=== PATIENT | male | born 1995 | race African-American/Black ===

== ENCOUNTER 2020-11-10 03:51 | Inpatient (IN) | payer OTHER, SELFPAY ==
[2020-11-10] VITALS (23 sets, daily range): BP systolic 108–153; BP diastolic 59–82; PULSE 59–94; RESP 12–22; TEMP 36.2–36.9; O2SAT 88–96; BMI 19.1
--- NOTE | ~2020-11-10 | XR_ITS ---
EXAMINATION: XR chest 1V portable EXAM DATE: 11/10/2020 04:29 INDICATION: Cough, asthma. TECHNIQUE: Portable AP frontal chest x-ray was obtained. Comparison is made to prior examination from 06/10/2019. FINDINGS: Mild hyperinflation. The lungs are clear. There are no pleural effusions. Cardiac silhoue tte is prominent but magnified on this AP technique. There is no pneumothorax suspected. The bones and soft tissues are unremarkable. IMPRESSION: Mild hyperinflation Reviewed, dictated and finalized at location A. S REPRESENTATIVE UNIFORMS IMPRESSION: Mild hyperinflation
[2020-11-10] MEDS: ALBUTEROL SULFATE NEB 2.5 MG/0.5 ML INH 10 MG INHALATION (04:12)
[2020-11-10] MEDS: IPRATROPIUM BR 0.02% INH SOLN 0.5 MG/2.5 ML VIAL 1 MG INHALATION (04:12)
[2020-11-10] MEDS: methylPREDNISolone SOD SUCC 125 MG VIAL IV PUSH (04:21)
[2020-11-10] MEDS: MAGNESIUM SULF 2 GM/WATER 50ML 2 GM/50 ML BAG IVPB (04:23)
[2020-11-10 04:31] LABS: Basophils Percent Auto 0.7 % (0.2-1.2); Eosinophils Absolute Auto 0.2 K/mm3 (0-0.3); Eosinophils Percent Auto 3.2 % (0-4.4); Hematocrit 44.5 % (42.0-52.0); Hemoglobin 14.9 g/dL (14.0-18.0); Immature Granulocyte Absolute 0.01 K/mm3 (0.00-0.031); Immature Granulocyte Percent A 0.2 % (0-0.5); Lymphocytes Absolute Auto 0.98 K/mm3 (0.9-3.2); Lymphocytes Percent Auto 17.5 % (18.3-44.2); Mean Corpuscular HGB Conc 33.5 g/dl (32-36); Mean Corpuscular Volume 92.7 fl (80-100); Mean Platelet Volume 10.3 fl (7.4-10.4); Monocytes Absolute Auto 0.4 K/mm3 (0.1-0.6); Neutrophils Percent Auto 71.4 % (45.5-73.1); Platelet Count Result 217 k/mm3 (150-375); Red Cell Distribution Width 13.9 % (11.5-14.5); White Blood Count 5.6 K/mm3 (4.5-10.0)
[2020-11-10 04:47] LABS: Anion Gap 7 mmol/L (8-16); Blood Urea Nitrogen 17 mg/dL (9-20); Calcium 8.8 mg/dL (8.4-10.2); Carbon Dioxide 28 mmol/L (22-30); Chloride 105 mmol/L (98-107); Estimated CRCL calculation 86 ml/min; Estimated Glomerular Filt Rate > 60; Glucose 108 mg/dL (75-110); Potassium 3.8 mmol/L (3.4-5.0); Sodium 140 mmol/L (137-145)
--- NOTE | 2020-11-10 05:16 | ED.ASTHMA ---
HPI - Asthma General Chief Complaint: Asthma Stated Complaint: Asthma attack Time Seen by Provider: 11/10/20 03:52 Source: RN notes reviewed History of Present Illness HPI Narrative: Patient presents to emergency department from home for asthma patient has had increasing shortness of breath over the past 3 days associated with wheezing states he has a history of asthma and this feels like his normal asthma attack. Patient with a cough that has been nonproductive as well patient states he has uses inhaler with no relief he denies any fevers or chills chest pain abdominal pain nausea vomiting or any other symptoms Related Data Home Medications Medication Instructions Recorded Confirmed albuterol sulfate INHALATION 11/10/20 albuterol sulfate [ProAir HFA] INHALATION 11/10/20 fexofenadine [Brook] mg 11/10/20 levothyroxine 11/10/20 montelukast [Singulair] 10 mg PO DAILY 11/10/20 Allergies Allergy/AdvReac Type Severity Reaction Status Date / Time No Known Allergies Allergy Verified 11/10/20 04:05 Review of Systems Review of Systems: Narrative: Gen.: Denies fevers or chills ENT: Denies congestion Respiratory: See HPI CV: Denies chest pain or palpitations GI: Denies abdominal pain nausea, emesis or diarrhea Musculoskeletal: Denies back pain or muscle pain Neuro: Denies numbness, tingling, weakness or focal weakness Skin: Denies rash Except as documented, all other systems reviewed and negative [facility] Past Medical History Medical History (Updated 11/10/20 @ 05:19 by Jeremiah Snider DO) Asthma Social History Social History (Updated 11/10/20 @ 05:17 by Jeremiah Snider DO) Smoking status: Never smoker Gender identity (if verbalized by the patient): Male Sexual Orientation (if Verbalized by the Patient): Straight or Heterosexual Exam Narrative: Exam Narrative: APPEARANCE: No acute distress, nontoxic, resting in bed EYES: EOMI HEENT: Normocephalic, atraumatic, OMM RESPIRATORY: Moderate respiratory distress wheezing throughout the bilateral lung brennan with decreased breath sounds in the bases CARDIOVASCULAR: Regular rate and rhythm without murmurs rubs or gallops. ABDOMINAL: Soft, nontender, nondistended, no rebound or guarding MUSCULOSKELETAl: Moves all extremities. No clubbing, cyanosis or edema. NEURO: Awake and alert. Following commands, speech normal, no focal deficits SKIN:: Warm, dry. No rashes lesions or abrasions PSYCHIATRIC: Normal affect/mood, Course Course Emergency Course: Following breathing treatment patient has wheezing throughout bilateral lung brennan will admit at this time Discussed with patient and family results of workup and diagnosis. Discussed need for admission. Patient and family understand and agree to current treatment plan Vital Signs Vital signs: Vital Signs Temperature 98.5 F 11/10/20 03:56 Pulse Rate 94 11/10/20 03:56 Respiratory Rate 15 11/10/20 03:56 Blood Pressure 133/82 11/10/20 03:56 Pulse Oximetry 92 11/10/20 03:56 Temperature 98.5 F 11/10/20 03:56 Pulse Rate 69 11/10/20 06:05 Respiratory Rate 14 11/10/20 06:05 Blood Pressure 144/61 H 11/10/20 05:30 Pulse Oximetry 92 11/10/20 05:30 MDM - Asthma Lab Data Result diagrams: 11/10/20 04:19 11/10/20 04:19 Labs: Lab Results 11/10/20 11/10/20 Range/Units 04:19 04:19 WBC 5.6 (4.5-10.0) K/mm3 RBC 4.80 (4.6-6.20) M/mm3 Hgb 14.9 (14.0-18.0) g/dL Hct 44.5 (42.0-52.0) % MCV 92.7 (80-100) fl MCH 31.0 (26-34) pg MCHC 33.5 (32-36) g/dl RDW 13.9 (11.5-14.5) % Plt Count 217 (150-375) k/mm3 MPV 10.3 (7.4-10.4) fl Immature Gran % (Auto) 0.2 (0-0.5) % Neut % (Auto) 71.4 (45.5-73.1) % Lymph % (Auto) 17.5 L (18.3-44.2) % Divide % (Auto) 7.0 (2.6-8.5) % Eos % (Auto) 3.2 (0-4.4) % Baso % (Auto) 0.7 (0.2-1.2) % Lymph # (Auto) 0.98 (0.9-3.2) K/mm3 Divide # (Auto) 0.4 (0.1-0.6) K/m
[2020-11-10] MEDS: IPRATROPIUM BR 0.02% INH SOLN 0.5 MG/2.5 ML VIAL INHALATION ×3 (06:01→21:48)
[2020-11-10] MEDS: ALBUTEROL SULFATE NEB 2.5 MG/0.5 ML INH 5 MG INHALATION ×3 (06:01→21:48)
--- NOTE | 2020-11-10 06:37 | ADMGEN ---
This patient, Avni Nath, was admitted to 2 Medical Room 247-11/10/2020 @0636. Patient/family oriented to hospital policies and general routines including ID bracelet, bed and alarms, visiting hours, pain management, procedures, bathroom and other care routines, personal items, smoking policy, room service/diet, and visiting hours. Information on how to activate the Rapid Response Team has been discussed. Patient/Family are encouraged to report perceived risks to care and to ask questions if they do not understand what they are told or what they should do.
--- NOTE | 2020-11-10 11:52 | PCRCNOTE ---
Window of time for administration has passed. See next scheduled administration.
[2020-11-10] MEDS: methylPREDNISolone SOD SUCC 125 MG VIAL 60 MG IV PUSH ×4 (12:00→23:54)
--- NOTE | 2020-11-10 15:00 | PM.IMHP ---
H&P: HPI History of Present Illness Date/Time: 11/10/20 15:00 Chief Complaint: Shortness of breath Narrative: Date of admission: 11/10/2020 Date of service: 11/10/2020 Avni Nath is a 25 year old male with a history of asthma, seasonal allergies, eczema, and Graves disease s/p radioactive iodine therapy who presented to the emergency department on 11/10/2020 with complaints of worsened shortness of breath. He notes that his symptoms started about 5 days ago when he developed a postnasal drip with phlegm. Two days ago, he went to his sister's who has a cat that he is allergic to. He then noted aural fullness, sinus congestion, fatigue, and submandibular lymphadenopathy. He began to experience chest tightness and wheezing. He also complained of pretty persistent cough with clear sputum production that had no odor. Late last night, he used his albuterol inhaler with no improvement, so then he tried a nebulized treatment. This did not improve his symptoms whatsoever, so he felt that he needed to seek emergency care. He reports on his way to the emergency department and shortly after arrival, he felt that he had increased work of breathing. In the ED, his vital signs were stable, and he received IV steroids, IV magnesium, and nebulizers. He reports improvement following these interventions. At this time, he endorses dyspnea that he feels is improving. He continues to endorse consistent cough but feels that it is loosening. He still has chest tightness and wheezing. He is endorsing orthopnea and PND. He also endorses rhinorrhea. With regards to his asthma, he was hospitalized in May 2019 for exacerbation, but other than this reports adequate control. He uses his rescue inhaler approximately 1 time per month and has nighttime symptoms only a couple of times per year. He feels that his asthma is worsened by seasonal changes, dust, and exposure to animals. He reports being exposed to secondhand smoke from his mother. He is typically able to perform strenuous activity with no limitations. He has never seen a blowing weasand. His primary care provider has retired and he will occasionally get refills of his albuterol from a physician friend. He is in the process establishing care with Dr. Raji Kaiser. Review of Systems Review of Systems: Narrative: All systems reviewed with pertinent positives and negatives as per HPI and below. Patient denies dysphagia, odynophagia. He denies ear pain, difficulty hearing, or tinnitus. Denies neck stiffness. He denies fever or chills. He does endorse sweats. He denies abdominal pain. His appetite has been good. He denies anosmia or dysgeusia. He denies dysuria, urgency, frequency, or hematuria. He has been having regular formed bowel movements and denies diarrhea. Denies any episodes of bleeding or bruising. PMFSH Past Medical History Medical History (Updated 11/10/20 @ 15:32 by Carola Cardozo PA-C) Asthma Eczema Graves disease Seasonal allergies Family History Family History (Updated 11/10/20 @ 15:18 by Carola Cardozo PA-C) Mother Heart disease Father Unknown family medical history Social History Social History (Updated 11/10/20 @ 15:27 by Carola Cardozo PA-C) Social History: Mr. Montoya lives at home with his adoptive parents. He works full-time for [employer]. He is independent in his daily activities. He is a lifelong nonsmoker and does not use alcohol or other drugs. He designates his mother as his surrogate decision maker and would like to be a full code. Smoking status: Never smoker Second hand tobacco smoke exposure: Yes Alcohol intake: never Substance use: current Substance use type: does not use Gender identity (if verbalized by the patient): Male Sexual Orientation (if Verbalized by the Patient): Straight or Heterosexual Meds Home Medications and Allergies Home Medications Medication Instructions Recorded Confirmed Type beth
--- NOTE | 2020-11-10 20:04 | PC.NURSE ---
1705 This patient, Avni Nath, was received from [ [address] [place] [address]] on 11/10/20 at 1705. Patient/family oriented to unit policies and routines
[2020-11-10] MEDS: FLUTICASONE PROPIONATE 0.05% NA SPR 16 GM BTL (*BKC) 1 SPRAY NASAL (20:18)
[2020-11-10] MEDS: guaiFENesin 12 HR 600 MG TABCR PO (20:18)
[2020-11-11] VITALS (16 sets, daily range): BP systolic 121–134; BP diastolic 51–74; PULSE 61–94; RESP 14–20; TEMP 36.6–37; O2SAT 89–95
[2020-11-11] MEDS: IPRATROPIUM BR 0.02% INH SOLN 0.5 MG/2.5 ML VIAL INHALATION ×4 (04:02→19:52)
[2020-11-11] MEDS: ALBUTEROL SULFATE NEB 2.5 MG/0.5 ML INH 5 MG INHALATION ×4 (04:02→19:52)
[2020-11-11] MEDS: LEVOTHYROXINE SODIUM 100 MCG TABLET PO (05:57)
[2020-11-11] MEDS: methylPREDNISolone SOD SUCC 125 MG VIAL 60 MG IV PUSH ×2 (05:57→11:14)
[2020-11-11 06:31] LABS: Basophils Percent Auto 0.1 % (0.2-1.2); Hematocrit 41.7 % (42.0-52.0); Hemoglobin 14.2 g/dL (14.0-18.0); Immature Granulocyte Absolute 0.08 K/mm3 (0.00-0.031); Immature Granulocyte Percent A 0.6 % (0-0.5); Lymphocytes Absolute Auto 0.37 K/mm3 (0.9-3.2); Lymphocytes Percent Auto 2.8 % (18.3-44.2); Mean Corpuscular HGB Conc 34.1 g/dl (32-36); Mean Corpuscular Hemoglobin 31.4 pg (26-34); Mean Corpuscular Volume 92.3 fl (80-100); Mean Platelet Volume 10.7 fl (7.4-10.4); Monocytes Absolute Auto 0.5 K/mm3 (0.1-0.6); Monocytes Percent Auto 3.4 % (2.6-8.5); Neutrophils Absolute Auto 12.4 K/mm3 (1.3-6.7); Neutrophils Percent Auto 93.1 % (45.5-73.1); Platelet Count Result 231 k/mm3 (150-375); Red Blood Count 4.52 M/mm3 (4.6-6.20); Red Cell Distribution Width 14.2 % (11.5-14.5); White Blood Count 13.3 K/mm3 (4.5-10.0)
[2020-11-11 06:46] LABS: Anion Gap 11 mmol/L (8-16); Blood Urea Nitrogen 17 mg/dL (9-20); Calcium 9.6 mg/dL (8.4-10.2); Carbon Dioxide 27 mmol/L (22-30); Chloride 100 mmol/L (98-107); Estimated CRCL calculation 72 ml/min; Estimated Glomerular Filt Rate > 60; Glucose 131 mg/dL (75-110); Sodium 138 mmol/L (137-145)
[2020-11-11 07:37] LABS: Large Platelets Present; Macrocytosis 1+ (NORMAL); Platelet Estimate Adequate (Adequate)
[2020-11-11] MEDS: FLUTICASONE PROPIONATE 0.05% NA SPR 16 GM BTL (*BKC) 1 SPRAY NASAL ×2 (08:07→20:32)
[2020-11-11] MEDS: SALINE 0.65% NAS SOLN 44 ML BTL 1 SPRAY NASAL (08:07)
[2020-11-11] MEDS: MONTELUKAST SODIUM 10 MG TABLET PO (08:09)
[2020-11-11] MEDS: ENOXAPARIN 40 MG/0.4 ML SYRINGE SUB-Q (08:09)
[2020-11-11] MEDS: LORATADINE 10 MG TABLET PO (08:09)
[2020-11-11] MEDS: guaiFENesin 12 HR 600 MG TABCR PO ×2 (08:32→20:32)
[2020-11-11 08:49] LABS: Influenza Control Positive
--- NOTE | 2020-11-11 11:17 | PM.IMPN ---
Progress Note: A&P Assessment and Plan (1) Acute respiratory failure with hypoxia: Code(s): J96.01 - Acute respiratory failure with hypoxia Status: Acute Assessment and Plan: He was noted to be hypoxic on arrival at 88%. This quickly resolved with supplemental O2. Patient did not tolerate weaning O2 11/10 and again became hypoxic at 89%. Currently requiring 2 L O2 per nasal cannula. Likely secondary to asthma exacerbation. Continue supplemental O2 as needed with goal saturation 90% or above. Wean to goal. COVID-19 pending. Influenza negative. (2) Asthma with acute exacerbation: Qualifiers: Asthma severity: mild Asthma persistence: intermittent Qualified Code(s): J45.21 - Mild intermittent asthma with (acute) exacerbation Code(s): J45.901 - Unspecified asthma with (acute) exacerbation Status: Acute Assessment and Plan: Patient has mild intermittent asthma. Findings consistent with acute asthma exacerbation, likely triggered by combination of exposure to allergen and possibly viral URI. Diffuse wheezing on exam (R>L) Continue Solumedrol 60 mg IV q6h. Associated leukocytosis noted. Continue albuterol and atrovent nebs q6h Continue home singulair No indication for empiric antibiotics at this time. (3) Upper respiratory infection: Code(s): J06.9 - Acute upper respiratory infection, unspecified Status: Acute Assessment and Plan: Suspected viral URI based on history of post-nasal drip, cough, sputum production, and congestion. CXR showed clear lungs with mild hyperinflation. Patient is afebrile. Influenza negative. Supportive care. Mucinex and nasal saline for congestion COVID-19 test pending as noted above. (4) Person under investigation for COVID-19: Code(s): Z20.828 - Contact with and (suspected) exposure to other viral communicable diseases Status: Acute Assessment and Plan: Given his respiratory symptoms, I feel that it is pertinent to rule out COVID-19. He denies exposure to any known COVID-19 positive contacts. He is hypoxic, however this may be more likely due to asthma exacerbation. Afebrile. CXR not consistent with covid pneumonia. Continue isolation precautions Patient is on IV solu-medrol for asthma exacerbation and at this time do not feel that transition to dexamethasone would be of much benefit. May consider transition if patient were to test positive. Do not feel that Remdesivir would be beneficial at this time given his stable oxygen requirements. Trend acute phase reactants Await results. (5) Graves disease: Code(s): E05.00 - Thyrotoxicosis with diffuse goiter without thyrotoxic crisis or storm Status: Inactive Assessment and Plan: S/p radioactive iodine therapy. Previously established with endocrinology but now no longer requiring follow-up. Continue levothyroxine Check TSH Subjective Date/time seen: 11/11/20 11:17 Interval history: Date of service: 11/11/2020 Avni Nath is a 25 year old male with a history of asthma, seasonal allergies, eczema, and Graves disease s/p radioactive iodine therapy who is seen in follow-up for asthma exacerbation. He is feeling better. He is endorsing dyspnea on exertion with ambulation to the restroom. He is coughing persistently but feels that cough is much looser. He thinks his congestion is improved. He is still having some chest tightness and still is wheezing. He was able to sleep comfortably last night and denied orthopnea or PND. He denies chest pain or palpitations. He complained of nasal dryness secondary to supplemental oxygen. He is eating and drinking well. Denies N/V/F/C, dizziness, lightheadedness, weakness, abdominal pain, cramping, dysuria, hematuria, or any additional concerns. Review of Systems Review of Systems: All systems reviewed & are unremarkable except as noted in HPI and below Exam Narrative
[2020-11-11 17:10] LABS: SARS-CoV-2 RNA PCR Negative
[2020-11-12] VITALS (11 sets, daily range): BP systolic 119–135; BP diastolic 57–62; PULSE 53–92; RESP 18–20; TEMP 36.8–37; O2SAT 93–97
[2020-11-12] MEDS: methylPREDNISolone SOD SUCC 125 MG VIAL 60 MG IV PUSH ×4 (00:54→21:17)
[2020-11-12] MEDS: IPRATROPIUM BR 0.02% INH SOLN 0.5 MG/2.5 ML VIAL INHALATION ×4 (01:24→19:43)
[2020-11-12] MEDS: ALBUTEROL SULFATE NEB 2.5 MG/0.5 ML INH 5 MG INHALATION ×4 (01:24→19:43)
[2020-11-12] MEDS: LEVOTHYROXINE SODIUM 100 MCG TABLET PO (05:42)
[2020-11-12 06:06] LABS: Hematocrit 41.9 % (42.0-52.0); Hemoglobin 14.8 g/dL (14.0-18.0); Mean Corpuscular HGB Conc 35.3 g/dl (32-36); Mean Corpuscular Hemoglobin 33.1 pg (26-34); Mean Corpuscular Volume 93.7 fl (80-100); Mean Platelet Volume 10.7 fl (7.4-10.4); Platelet Count Result 233 k/mm3 (150-375); Red Blood Count 4.47 M/mm3 (4.6-6.20); Red Cell Distribution Width 14.6 % (11.5-14.5); White Blood Count 10.1 K/mm3 (4.5-10.0)
[2020-11-12 06:41] LABS: Alanine Aminotransferase 22 U/L (4-50); Albumin Level 4.4 g/dL (3.5-5.1); Alkaline Phosphatase 36 U/L (38-126); Anion Gap 7 mmol/L (8-16); Aspartate Amino Transferase 33 U/L (17-59); Bilirubin,Total 0.4 mg/dL (0.2-1.3); Blood Urea Nitrogen 24 mg/dL (9-20); CRP 1.6 mg/dL (<1.0); Calcium 9.6 mg/dL (8.4-10.2); Carbon Dioxide 31 mmol/L (22-30); Chloride 99 mmol/L (98-107); Estimated CRCL calculation 72 ml/min; Estimated Glomerular Filt Rate > 60; Glucose 108 mg/dL (75-110); Potassium 4.5 mmol/L (3.4-5.0); Sodium 137 mmol/L (137-145)
[2020-11-12 06:49] LABS: Lactate Dehydrogenase 417 U/L (313-618)
[2020-11-12 08:12] LABS: Free T4 Free Thyroxine Reflex 0.45 ng/dL (0.78-2.19)
[2020-11-12] MEDS: ENOXAPARIN 40 MG/0.4 ML SYRINGE SUB-Q (09:02)
[2020-11-12] MEDS: MONTELUKAST SODIUM 10 MG TABLET PO (09:02)
[2020-11-12] MEDS: FLUTICASONE PROPIONATE 0.05% NA SPR 16 GM BTL (*BKC) 1 SPRAY NASAL ×2 (09:02→21:17)
[2020-11-12] MEDS: guaiFENesin 12 HR 600 MG TABCR PO ×2 (09:02→21:17)
[2020-11-12] MEDS: LORATADINE 10 MG TABLET PO (09:03)
--- NOTE | 2020-11-12 09:52 | PM.IMPN ---
Progress Note: A&P Assessment and Plan (1) Acute respiratory failure with hypoxia: Code(s): J96.01 - Acute respiratory failure with hypoxia Status: Resolved Assessment and Plan: Resolved. He was noted to be hypoxic on arrival at 88%. This quickly resolved with supplemental O2. Secondary to asthma exacerbation. He was weaned to room air yesterday morning and remains on room air. COVID-19 testing was negative. Continue supplemental O2 as needed with goal saturation 90% or above (2) Asthma with acute exacerbation: Qualifiers: Asthma persistence: intermittent Asthma severity: mild Qualified Code(s): J45.21 - Mild intermittent asthma with (acute) exacerbation Code(s): J45.901 - Unspecified asthma with (acute) exacerbation Status: Acute Assessment and Plan: Patient has mild intermittent asthma. Findings consistent with acute asthma exacerbation, likely triggered by combination of exposure to allergen and possibly viral URI. He still has some mild wheezing but has improved significantly overall. Hopeful discharge tomorrow. Continue solumedrol 60 mg IV, will taper to Q8HR today Continue albuterol and atrovent nebs q6h Continue home singulair No indication for empiric antibiotics at this time. (3) Upper respiratory infection: Code(s): J06.9 - Acute upper respiratory infection, unspecified Status: Acute Assessment and Plan: Suspected viral URI based on history of post-nasal drip, cough, sputum production, and congestion. CXR showed clear lungs with mild hyperinflation. Patient is afebrile. Influenza negative. COVID-19 testing negative. Supportive care. Mucinex and nasal saline for congestion (4) Graves disease: Code(s): E05.00 - Thyrotoxicosis with diffuse goiter without thyrotoxic crisis or storm Status: Inactive Assessment and Plan: S/p radioactive iodine therapy. Previously established with endocrinology but now no longer requiring follow-up. Continue levothyroxine, increase to 125mcg TSH elevated at 27.5, free T4 low at 0.45. Free T3 pending. Plan for repeat thyroid function testing in 4 weeks and outpatient follow-up (5) COVID-19 ruled out by laboratory testing: Code(s): Z03.818 - Encounter for observation for suspected exposure to other biological agents ruled out Status: Acute Assessment and Plan: SARS-CoV-2 testing was performed given respiratory symptoms and negative. Isolation precautions were discontinued. Subjective Date/time seen: 11/12/20 09:52 Interval history: Mr. Nath is a 25 y.o. male PMH significant for asthma, seasonal allergies, eczema, and Graves disease s/p radioactive iodine therapy who is seen in follow-up for asthma exacerbation. He is doing well today and feels that air movement and dyspnea have improved significantly. He does note occasional wheezing still but feels airways are less tight overall. He has no chest pain, chest tightness, pleuritic pain, or palpitations. He notes occasional cough which is productive of clear sputum in the morning. He slept well. His appetite is fine and bowels are regular. He denies leg swelling and calf tenderness. He has no other concerns. Review of Systems Review of Systems: All systems reviewed & are unremarkable except as noted in HPI and below Exam Narrative: Exam Narrative: General: Very pleasant, well-developed, and well-nourished 25 y.o. male who is lying semi-recumbent in bed in no acute distress. HEENMT: Normocephalic and atraumatic. Sclera anicteric. EOMI. Oral mucosa moist. Neck: Supple. Cardiac: Regular rate and rhythm. S1 and S2 normal. Lungs: Effort normal. Lungs have faint expiratory wheeze in the left upper anterior lung field and left lower lung field without rales or rhonchi. Abdomen: Bowel sounds are normoactive. Abdomen is soft, non-distended, and non-tender. Extremities: Warm and well-perfused.
[2020-11-12] MEDS: LEVOTHYROXINE SODIUM 25 MCG TABLET PO (10:59)
[2020-11-13] MEDS: IPRATROPIUM BR 0.02% INH SOLN 0.5 MG/2.5 ML VIAL INHALATION ×2 (01:28→08:22)
[2020-11-13] MEDS: ALBUTEROL SULFATE NEB 2.5 MG/0.5 ML INH 5 MG INHALATION ×2 (01:28→08:22)
[2020-11-13 01:30] VITALS: PULSE 73; RESP 18
[2020-11-13 06:00] VITALS: BP 121/62; PULSE 60; RESP 20; TEMP 37; O2SAT 97
[2020-11-13] MEDS: LEVOTHYROXINE SODIUM 125 MCG TABLET PO (06:35)
[2020-11-13] MEDS: methylPREDNISolone SOD SUCC 125 MG VIAL 60 MG IV PUSH (06:35)
[2020-11-13 06:38] LABS: Hematocrit 43.4 % (42.0-52.0); Hemoglobin 14.4 g/dL (14.0-18.0); Mean Corpuscular HGB Conc 33.2 g/dl (32-36); Mean Corpuscular Hemoglobin 31.1 pg (26-34); Mean Corpuscular Volume 93.7 fl (80-100); Mean Platelet Volume 10.9 fl (7.4-10.4); Platelet Count Result 246 k/mm3 (150-375); Red Blood Count 4.63 M/mm3 (4.6-6.20); Red Cell Distribution Width 14.6 % (11.5-14.5); White Blood Count 8.9 K/mm3 (4.5-10.0)
[2020-11-13 07:25] LABS: Alanine Aminotransferase 22 U/L (4-50); Albumin Level 4.4 g/dL (3.5-5.1); Alkaline Phosphatase 38 U/L (38-126); Anion Gap 8 mmol/L (8-16); Aspartate Amino Transferase 33 U/L (17-59); Bilirubin,Total 0.4 mg/dL (0.2-1.3); Blood Urea Nitrogen 27 mg/dL (9-20); Calcium 9.6 mg/dL (8.4-10.2); Carbon Dioxide 28 mmol/L (22-30); Chloride 101 mmol/L (98-107); Estimated CRCL calculation 72 ml/min; Estimated Glomerular Filt Rate > 60; Glucose 95 mg/dL (75-110); Magnesium 2.1 mg/dL (1.6-2.3); Potassium 4.6 mmol/L (3.4-5.0); Sodium 137 mmol/L (137-145)
[2020-11-13] MEDS: FLUTICASONE PROPIONATE 0.05% NA SPR 16 GM BTL (*BKC) 1 SPRAY NASAL (08:02)
[2020-11-13] MEDS: MONTELUKAST SODIUM 10 MG TABLET PO (08:02)
[2020-11-13] MEDS: ENOXAPARIN 40 MG/0.4 ML SYRINGE SUB-Q (08:02)
[2020-11-13] MEDS: guaiFENesin 12 HR 600 MG TABCR PO (08:02)
[2020-11-13] MEDS: LORATADINE 10 MG TABLET PO (08:02)
[2020-11-13 08:20] VITALS: PULSE 62; RESP 18
[2020-11-13 08:30] VITALS: PULSE 65; RESP 18
[2020-11-13 10:42] VITALS: O2SAT 96
--- NOTE | 2020-11-13 11:55 | PM.DS ---
DS: Admitting Diagnosis Admitting Diagnosis Admitting Diagnosis: Acute asthma exacerbation DS: Discharge Diagnosis Discharge Diagnosis (1) Acute respiratory failure with hypoxia: Code(s): J96.01 - Acute respiratory failure with hypoxia Status: Resolved Assessment and Plan: Resolved. He was noted to be hypoxic on arrival at 88%. This quickly resolved with supplemental O2. Secondary to asthma exacerbation. He was weaned to room air the morning of 11/12/20 and remained on room air. COVID-19 testing was negative. (2) Asthma with acute exacerbation: Qualifiers: Asthma persistence: intermittent Asthma severity: mild Qualified Code(s): J45.21 - Mild intermittent asthma with (acute) exacerbation Code(s): J45.901 - Unspecified asthma with (acute) exacerbation Status: Acute Assessment and Plan: Patient has mild intermittent asthma. Findings consistent with acute asthma exacerbation, likely triggered by combination of exposure to allergen and possibly viral URI. He still has some mild wheezing but has improved significantly overall. Solumedrom was tapered. Albuterol and atrovent nebs were given. Home singulair was continued. (3) Upper respiratory infection: Code(s): J06.9 - Acute upper respiratory infection, unspecified Status: Resolved Assessment and Plan: Suspected viral URI based on history of post-nasal drip, cough, sputum production, and congestion. CXR showed clear lungs with mild hyperinflation. Patient is afebrile. Influenza negative. COVID-19 testing negative. Supportive care with mucinex and nasal saline for congestion was continued. (4) Graves disease: Code(s): E05.00 - Thyrotoxicosis with diffuse goiter without thyrotoxic crisis or storm Status: Chronic Assessment and Plan: S/p radioactive iodine therapy. Previously established with endocrinology but now no longer requiring follow-up. TSH elevated at 27.5, free T4 low at 0.45. Free T3 pending at discharge. Levothyroxine was increase to 125mcg given significant elevation in TSH, low free T4. He was given lab orders for repeat thyroid function testing in 4 weeks and will need outpatient follow-up for further dose adjustments. (5) COVID-19 ruled out by laboratory testing: Code(s): Z03.818 - Encounter for observation for suspected exposure to other biological agents ruled out Status: Acute Assessment and Plan: SARS-CoV-2 testing was performed given respiratory symptoms and negative. Isolation precautions were discontinued. DS: Summary Hospital Course Reason for hospitalization: Shortness of breath Hospital Course: Mr. Sky is a 25 y.o. male with PMH significant for asthma, eczema ,Graves disease, and seasonal allergies who presented to the emergency department 11/10/20 for the evaluation of shortness of breath. Symptoms started 5 days prior and included post-nasal drip, aural fullness, sinus congestion, fatigue, and submandibular lymphadenopathy. He was exposed to his sister's cat which he is allergic to which he thinks triggered his symptoms. He noticed chest tightness and wheezing. He did not have relief with his albuterol inhaler so he proceeded to the emergency department for further evaluation. In regards to his asthma, his last hospitalization was May 2019 and he reported using his rescue inhaler once per month. He was hypoxic on arrival to the ED with pulse oxygenation of 88%. He was placed on 2 liters per nasal cannula. Initial workup in the ED included CXR with hyperinflation and labs unremarkable. He was treated with IV solumedrol and bronchodilators and admitted to the hospitalist service. He was placed in isolation and tested for COVID-19 which was negative. TSH was elevated at 27.5 with low free T4 so levothyroxine was increased to 125mcg and he was given labs for repeat thyroid function tests in 4 weeks. He admitted it had been approximately 1 ye
[2020-11-19 11:06] LABS: Triiodothyronine T3 Free 1.6 pg/mL (2.3-4.2)
== END 2020-11-13 12:35 | disposition home or self-care (01) | DRG 202 ==
LOC: ANHED 05:19 → ANH2MED 05:33 → ANH3MEDSUR 17:01
PROVIDERS: Physician Assistant; Admitting Provider Student in an Organized Health Care Education/Training Program; Emergency Provider Emergency Medicine; Visit Provider Physician Assistant
DX: J45.21 Mild intermittent asthma with (acute) exacerbation (principal); J96.01 Acute respiratory failure with hypoxia; J06.9 Acute upper respiratory infection, unspecified; J30.1 Allergic rhinitis due to pollen; Z20.828 Contact with and (suspected) exposure to other viral communicable diseases; E05.00 Thyrotoxicosis with diffuse goiter without thyrotoxic crisis or storm; L30.9 Dermatitis, unspecified
CPT/HCPCS: 36415; 71045; 80048; 80053; 82728; 83615; 83735; 84439; 84443; 84481; 85025; 85027; 86140; 87070; 87205; 87635; 87804; 94640; 96365; 96372; 96374; 96375; 96376; 99285; A9270; C9803; G0378; J1650; J2930; J3475; U0003

== ENCOUNTER 2021-05-25 14:24 | Emergency (ER) | payer BC, SELFPAY ==
[2021-05-25 14:32] VITALS: BP 115/77; PULSE 62; RESP 16; TEMP 36.6; O2SAT 99
--- NOTE | 2021-05-25 14:32 | ED.URI ---
HPI - URI/Sore Throat General Chief Complaint: Upper Respiratory Infection Stated Complaint: difficulty breathing/congestion Time Seen by Provider: 05/25/21 14:32 Source: patient and RN notes reviewed Mode of arrival: ambulatory Limitations: no limitations History of Present Illness HPI Narrative: 25-year-old male presents to the [facility] with complaints of shortness of breath. Patient has a history of asthma and states symptoms started yesterday. Has not used his inhaler. Took Mucinex this morning is not getting any better. Patient states that he was hospitalized back in October, not that bad. Denies any fevers, abdominal pain or chest pain. MD elicited complaint: fever Related Data Home Medications Medication Instructions Recorded Confirmed albuterol sulfate [ProAir HFA] 2 puff INHALATION QID PRN 11/10/20 11/10/20 fexofenadine 180 mg PO DAILY 11/10/20 11/10/20 montelukast [Singulair] 10 mg PO DAILY 11/10/20 11/10/20 Allergies Allergy/AdvReac Type Severity Reaction Status Date / Time No Known Allergies Allergy Verified 11/10/20 06:48 Review of Systems Review of Systems: All systems reviewed & are unremarkable except as noted in HPI and below Constitutional: Constitutional: Reports no additional constitutional complaints, Denies chills and Denies fever(s) Eyes: Eyes: Reports no additional eye complaints ENT: Reports system reviewed and no additional complaints, except as documented Cardiovascular: Cardiovascular: Reports no additional cardiovascular complaints and Denies chest pain Respiratory: Respiratory: Reports as per HPI, Reports cough, Reports dyspnea and Reports wheezing Gastrointestinal: Gastrointestinal: Reports no additional gastrointestinal complaints, Denies abdominal pain, Denies nausea and Denies vomiting Musculoskeletal: Musculoskeletal: Reports no additional musculoskeletal complaints Integumentary/Breasts: Skin/Breast: Reports system reviewed and no additional complaints, except as docu Neurologic: Reports system reviewed and no additional complaints, except as documented Psychiatric: Psychiatric: Reports no additional psychiatric complaints Allergic/Immunologic: Allergic/Immunologic: Reports no additional allergic/immunologic complaints [facility] Past Medical History Medical History Asthma Eczema Graves disease Seasonal allergies Family History Family History Mother Heart disease Father Unknown family medical history Social History Social History Social History: Mr. Montoya lives at home with his adoptive parents. He works full-time for [employer] He is independent in his daily activities. He is a lifelong nonsmoker and does not use alcohol or other drugs. He designates his mother as his surrogate decision maker and would like to be a full code. Smoking status: Never smoker Second hand tobacco smoke exposure: Yes Alcohol intake: never Substance use: current Substance use type: does not use Gender identity (if verbalized by the patient): Male Comments At the time of my signature, I reviewed and agree with the nursing past medical, surgical, social, and family history. There is no relevant family history pertinent to the patient complaint. Exam Const: General: healthy appearing, no acute distress and alert Nutritional Appearance: well nourished Orientation/consciousness: patient oriented x3 HENMT: Head: normal to inspection Ears: external ears normal, TM's normal bilaterally and EAC's normal Eyes: Conjunctivae: conjunctivae normal Pupils: Equal, round and reactive pupils present Neck: Neck: normal visual inspection, no lymphadenopathy and no meningeal signs Chest: Chest palpation & inspection: normal inspection of the chest Resp: Effort & Inspection: normal respiratory effort Auscultation: wheezes expiratory
[2021-05-25] MEDS: predniSONE 20 MG TABLET 40 MG PO (14:45)
[2021-05-25] MEDS: ALBUTEROL SULFATE NEB 2.5 MG/3 ML INH INHALATION (14:47)
[2021-05-25] MEDS: IPRATROPIUM BR 0.02% INH SOLN 0.5 MG/2.5 ML VIAL INHALATION (14:47)
[2021-05-25 14:52] VITALS: PULSE 72; RESP 16; O2SAT 99
== END 2021-05-25 15:17 | disposition home or self-care (01) ==
PROVIDERS: Emergency Provider Nurse Practitioner; PCP Family Medicine Sports Medicine
DX: J45.909 Unspecified asthma, uncomplicated (principal); E05.00 Thyrotoxicosis with diffuse goiter without thyrotoxic crisis or storm
CPT/HCPCS: 94640; 99213; G0463; J7512